=== PATIENT | male | born 1985 | race Caucasian/White ===

== ENCOUNTER → 2016-08-01 | Outpatient (CLI) | payer OTHER ==
[~2016-08-01] MED LIST: ATIVAN 0.50.5 MG/TAB PO; BACTRIM DS 8001 TAB PO; CEPHALEXIN500 M1 PO; CIPRO 500MG TA500 MG PO; FLAGYL500 MG PO; JOINT BOOST1 TA1 PO; LEVAQUIN 5500 MG/TA1 PO; NO HOME MEDICATIONS; NORCO 325 MG-51 TAB PO; TORADOL 10MG TA10 MG PO
[2016-08-01 09:57] LABS: HEMATOCRIT 42.5 % (42.0-52.0); HEMOGLOBIN 14.1 g/dl (13.5-18.0); MEAN CELL VOLUME 86 fl (80.0-100.0); MEAN CORPUSCULAR HEMOGLOBIN 29 pg (27.0-31.0); MEAN CORPUSCULAR HGB CONC 33 g/dl (33.0-37.0); MEAN PLATELET VOLUME 9.8 fl (7.4-10.4); PLATELET COUNT 428 K/mm3 (130-400); RED BLOOD COUNT 4.93 M/mm3 (4.20-5.60); REDCELL DISTRIBUTION WIDTH-CV 12.4 % (11.5-14.5); WHITE BLOOD COUNT 8.3 K/mm3 (4.8-10.8)
[2016-08-01 10:11] LABS: CALCIUM 10.3 mg/dL (8.4-10.2); CREATININE, serum 0.85 mg/dL (0.66-1.25); POTASSIUM 4.9 mmol/L (3.4-5.0)
[2016-08-01 10:26] LABS: C-REACTIVE PROTEIN 22.7 mg/dL (0.0-0.9)
== END ==
LOC: COL.RAD 09:24
PROVIDERS: Surgery
DX: K57.20 Diverticulitis of large intestine with perforation and abscess without bleeding (principal)
CPT/HCPCS: Q9967

== ENCOUNTER → 2016-08-02 | Outpatient (CLI) | payer OTHER ==
[~2016-08-02] VITALS: Ht 180.3 cm; Wt 118.2 kg
[2016-08-02] VITALS (11 sets, daily range): BP systolic 103–126; BP diastolic 53–79; PULSE 52–78
== END ==
LOC: COL.RAD 07:50
DX: L02.211 Cutaneous abscess of abdominal wall (principal); K57.20 Diverticulitis of large intestine with perforation and abscess without bleeding
CPT/HCPCS: J2250; J3010

== ENCOUNTER 2016-08-07 09:04 | Inpatient (IN) | payer OTHER ==
[~2016-08-07] VITALS: Ht 180.3 cm; Wt 119.1 kg
[~2016-08-07 09:04] MED LIST changes: -ATIVAN 0.50.5 MG/TAB PO
[2016-08-18] VITALS (12 sets, daily range): BP systolic 93–128; BP diastolic 55–76; PULSE 75–100; TEMP 97–98.4
[2016-08-18] MEDS ORDERED: ATIVAN 0.50.5 MG/TAB PO (06:58)
[2016-08-19 01:49] VITALS: BP 117/49; PULSE 85; TEMP 98.1
[2016-08-19 05:24] VITALS: BP 109/51; PULSE 81; TEMP 97.6
[2016-08-19 08:56] LABS: HEMATOCRIT 36.5 % (42.0-52.0); HEMOGLOBIN 11.8 g/dl (13.5-18.0)
[2016-08-19 09:31] LABS: CALCIUM 9.3 mg/dL (8.4-10.2); CREATININE, serum 0.7 mg/dL (0.66-1.25); POTASSIUM 4.4 mmol/L (3.4-5.0)
[2016-08-19 10:19] VITALS: BP 111/56; PULSE 72; TEMP 97.9
[2016-08-19 14:45] VITALS: BP 112/54; PULSE 70; TEMP 98.9
[2016-08-19 18:07] VITALS: BP 121/54; PULSE 74; TEMP 97.4
[2016-08-19 22:11] VITALS: BP 115/55; PULSE 66; TEMP 98.1
[2016-08-20 05:03] VITALS: BP 113/44; PULSE 51; TEMP 98
[2016-08-20 10:30] VITALS: BP 112/56; PULSE 62; TEMP 97.8
== END 2016-08-20 12:55 | disposition home or self-care (01) | DRG 330 ==
LOC: INPTSU 08-18 06:35 → SURG 08-18 08:30
PROVIDERS: Surgery
PROC: 8E0W0CZ Robotic Assisted Procedure of Trunk Region, Open Approach (ICD-10-PCS; 2016-08-18)
PROC: 0DTN0ZZ Resection of Sigmoid Colon, Open Approach (ICD-10-PCS; principal; 2016-08-18 08:30)
DX: K57.20 Diverticulitis of large intestine with perforation and abscess without bleeding (principal)
CPT/HCPCS: A4315; A9284; E0710; J0360; J0690; J1100; J1170; J1650; J1885; J2175; J2405; J2704; J2710; J3010; J7120

== ENCOUNTER → 2016-10-25 | Outpatient (CLI) | payer OTHER ==
[~2016-10-25] MED LIST changes: +ATIVAN 0.50.5 MG/TAB PO
== END ==
LOC: COL.LAB 12:49
DX: K57.00 Diverticulitis of small intestine with perforation and abscess without bleeding (principal); R07.89 Other chest pain

== ENCOUNTER → 2016-10-30 | Outpatient (CLI) | payer OTHER | LOC: COL.RAD 12:15 | DX: R10.32 Left lower quadrant pain (principal); R18.8 Other ascites; Z98.890 Other specified postprocedural states | CPT/HCPCS: Q9967 ==

== ENCOUNTER 2017-06-05 16:34 | Emergency (ER) | payer OTHER ==
[~2017-06-05] VITALS: Ht 177.8 cm; Wt 125.5 kg
[2017-06-05 16:43] VITALS: BP 139/67; TEMP 98.6
[2017-06-05 17:25] LABS: COLLECTION METHOD CLEAN CATCH
[2017-06-05 17:40] LABS: PH 6 (5-8); SQUAMOUS EPITHELIAL 0-2 /hpf; URINE APPEARANCE Clear; URINE BACTERIA Rare /hpf; URINE BILIRUBIN Negative (NEGATIVE); URINE BLOOD 1+ (NEGATIVE); URINE COLOR Straw; URINE GLUCOSE Negative (NEGATIVE); URINE KETONE Negative (NEGATIVE); URINE LEUKOCYTE ESTERASE Negative (NEGATIVE); URINE PROTEIN(semi-quant) Negative (NEGATIVE); URINE RBC 0-2 /hpf; URINE UROBILINOGEN Negative (NEGATIVE); URINE WBC 0-2 /hpf
[2017-06-05 17:48] LABS: BASO % 0.3 % (0.0-2.0); EOS # 0.1 (0.0-0.7); EOS % 0.5 % (0-4.0); GRAN # 7.1 (1.4-6.5); GRAN % 68.8 % (42.2-75.2); HEMATOCRIT 46.7 % (42.0-52.0); HEMOGLOBIN 15.5 g/dl (13.5-18.0); LYMPH # 2.4 (1.2-3.4); LYMPH % 23.5 % (20.0-51.0); MEAN CELL VOLUME 89 fl (80.0-100.0); MEAN CORPUSCULAR HEMOGLOBIN 30 pg (27.0-31.0); MEAN CORPUSCULAR HGB CONC 33 g/dl (33.0-37.0); MEAN PLATELET VOLUME 10.1 fl (7.4-10.4); MONO # 0.6 (0.1-0.6); MONO % 6.1 % (1.7-9.3); PLATELET COUNT 261 K/mm3 (130-400); RED BLOOD COUNT 5.24 M/mm3 (4.20-5.60); WHITE BLOOD COUNT 10.3 K/mm3 (4.8-10.8)
[2017-06-05 18:05] LABS: ALANINE AMINOTRANSFERASE 52 U/L (21-72); ALKALINE PHOSPHATASE 53 U/L (50-136); ANION GAP 12 mmol/L (7-16); BILIRUBIN,TOTAL 1.3 mg/dL (0.0-1.0); BLOOD UREA NITROGEN 12 mg/dL (9-20); C-REACTIVE PROTEIN < 0.5 mg/dL (0.0-0.9); CALCIUM 9.8 mg/dL (8.4-10.2); CARBON DIOXIDE 25 mmol/L (22-30); CHLORIDE 101 mmol/L (98-107); CREATININE, serum 0.86 mg/dL (0.66-1.25); GLUCOSE 87 mg/dL (74-106); LIPASE 167 U/L (23-300); POTASSIUM 3.9 mmol/L (3.4-5.0); SODIUM 139 mmol/L (137-145)
[2017-06-05] MEDS ORDERED: NORCO 325 MG-51 TAB PO (19:12)
[2017-06-05 19:39] VITALS: PULSE 78
== END 2017-06-05 19:41 | disposition home or self-care (01) ==
LOC: COL.ER 16:34
PROVIDERS: Physician Assistant
DX: R10.32 Left lower quadrant pain (principal); Z90.49 Acquired absence of other specified parts of digestive tract
CPT/HCPCS: J1170; J2405; J7030; J7050; Q9967

== ENCOUNTER → 2023-08-09 | Outpatient (CLI) | payer BC | LOC: COL.RAD 09:50 | DX: K76.0 Fatty (change of) liver, not elsewhere classified (principal); K83.8 Other specified diseases of biliary tract ==

== ENCOUNTER → 2023-08-24 | Outpatient (CLI) | payer BC | LOC: COL.RAD 06:31 | DX: R10.11 Right upper quadrant pain (principal) | CPT/HCPCS: A9537-JZ; J2805 ==